=== PATIENT | female | born 1950 | race Caucasian/White ===

== ENCOUNTER 2016-09-09 10:43 | Inpatient (IN) | payer OTHER ==
[2016-09-10 04:54] LABS: HCT 34.8 % (37.0-47.0); HGB 11.3 g/dl (12.5-16.0); MCH 30.8 pg (25.0-31.0); MCHC 32.5 g/dL (32.0-36.0); MCV 94.8 fL (78.0-100.0); RBC 3.67 M/uL (4.20-5.40); RDW 13.3 % (11.5-14.0); WBC 14.6 K/uL (4.0-10.5)
[2016-09-10 07:58] LABS: ALBUMIN 3.9 g/dL (3.4-4.8); BILIRUBIN - TOTAL 1.3 mg/dL (0.1-1.0); CREATININE 0.9 mg/dL (0.5-1.0); GLOBULIN (CALCULATION) 1.8 g/dL (2.2-4.2); POTASSIUM 4.8 mmol/L (3.5-5.1); TOTAL PROTEIN 5.7 g/dL (6.4-8.3)
[2016-09-11 05:08] LABS: BASOPHIL 0.1 % (0-2); EOSINOPHIL 2.3 % (0-7); HCT 32.3 % (37.0-47.0); HGB 10.5 g/dl (12.5-16.0); LYMPHOCYTE 19.1 % (15-48); MCH 31.3 pg (25.0-31.0); MCHC 32.5 g/dL (32.0-36.0); MCV 96.4 fL (78.0-100.0); MONOCYTE 10.6 % (0-12); NEUTROPHIL 67.9 % (41-80); PLT 241 K/uL (150-400); RBC 3.35 M/uL (4.20-5.40); RDW 13.4 % (11.5-14.0); WBC 12.2 K/uL (4.0-10.5)
[2016-09-11 05:25] LABS: ALBUMIN 3.7 g/dL (3.4-4.8); CREATININE 0.9 mg/dL (0.5-1.0); GLOBULIN (CALCULATION) 1.9 g/dL (2.2-4.2); POTASSIUM 4.5 mmol/L (3.5-5.1); TOTAL PROTEIN 5.6 g/dL (6.4-8.3)
[2016-09-12 04:30] LABS: HCT 31.6 % (37.0-47.0); HGB 10.1 g/dl (12.5-16.0); MCH 30.8 pg (25.0-31.0); MCV 96.3 fL (78.0-100.0); MPV 9.9 fL (6.0-9.5); RBC 3.28 M/uL (4.20-5.40); RDW 13.3 % (11.5-14.0)
== END 2016-09-12 14:05 | disposition home health service (06) | DRG 470 ==
LOC: FMS 10:43
PROVIDERS: Internal Medicine; Nurse Practitioner; ADMIT Legal Medicine
PROC: 0SR904A Replacement of Right Hip Joint with Ceramic on Polyethylene Synthetic Substitute, Uncemented, Open Approach (ICD-10-PCS; principal; 2016-09-09 08:00)
DX: M16.11 Unilateral primary osteoarthritis, right hip (principal); I10 Essential (primary) hypertension; D62 Acute posthemorrhagic anemia; S76.312A Strain of muscle, fascia and tendon of the posterior muscle group at thigh level, left thigh, initial encounter; E78.5 Hyperlipidemia, unspecified; E03.9 Hypothyroidism, unspecified; R74.0 Nonspecific elevation of levels of transaminase and lactic acid dehydrogenase [LDH]; R11.0 Nausea; Z88.8 Allergy status to other drugs, medicaments and biological substances; Z83.3 Family history of diabetes mellitus; Z82.49 Family history of ischemic heart disease and other diseases of the circulatory system
CPT/HCPCS: 36415; 73501; 76000; 80053; 85025; 86850; 86900; 86901; 88304; 88311; 94010; 94762; 97110; 97116; 97162; 97166; 97530; 97530-GP; 97535; C1776; J0131; J0697; J1100; J1170; J2405; J2704; J2795; J3010